=== PATIENT | male | born 1960 | race Caucasian/White ===

== ENCOUNTER 2022-03-12 20:06 | Emergency (ER) | payer MEDICAID, OTHER ==
[~2022-03-12] VITALS: Ht 167.6 cm; Wt 73.5 kg
[2022-03-12] MEDS ORDERED: SULF1TAB48 PO (21:42)
[2022-03-12] MEDS ORDERED: IBUP-1955 PO (21:42)
[2022-03-12] MEDS ORDERED: CEPH500T PO (21:42)
--- NOTE | 2022-03-12 21:51 | NUR ---
Patient discharged to home in stable condition. Written and verbal after care instructions given. Patient verbalizes understanding of instruction.
[2022-03-12 21:53] VITALS: BP 135/77
== END 2022-03-12 21:54 | disposition home or self-care (01) ==
LOC: ER 20:12
DX: S90.425A Blister (nonthermal), left lesser toe(s), initial encounter (principal); L03.032 Cellulitis of left toe; Z79.899 Other long term (current) drug therapy; W57.XXXA Bitten or stung by nonvenomous insect and other nonvenomous arthropods, initial encounter; Y93.89 Activity, other specified; Y92.89 Other specified places as the place of occurrence of the external cause; Y99.8 Other external cause status